=== PATIENT | male | born 1975 | race African-American/Black ===

== ENCOUNTER 2024-02-19 20:47 | Observation (INO) | payer OTHER ==
[2024-02-19 21:11] VITALS: BMI 32.5
[2024-02-19] MEDS: IBUPROFEN 600 MG TABLET (FP) PO ONE (21:21)
[2024-02-19] MEDS ORDERED: morphine SULFATE 4 MG/ML VIAL ONE (21:22)
[2024-02-19] MEDS: morphine CARPU-JECT 4 MG/1 ML DISP.SYRIN IVPUSH ONE (21:39)
[2024-02-19 22:21] LABS: BASO % 0.5 % (0-2.0); EOS % 1.1 % (0-4.5); HEMATOCRIT 39.4 % (35.4-49); HEMOGLOBIN 13.4 GM/dL (11.7-16.9); LYMPH % 32.4 % (8-40); MCH 26.4 pg (25.7-33.7); MEAN CELL VOLUME 77.8 fl (80-96); MEAN PLT VOLUME 9.8 fl (7.5-11.1); MONO % 6.1 % (3.8-10.2); NEUT % 59.9 % (42.8-82.8); PLATELET COUNT 181 10^3/uL (134-434); RBC 5.07 M/mm3 (4.00-5.60); RDW 13.1 % (11.9-15.9); WHITE BLOOD COUNT 6.1 K/mm3 (4.0-10.0)
[2024-02-19 22:27] LABS: INR 1.22 (0.83-1.09); PROTHROMBIN TIME (PATIENT) 13.7 SEC (9.7-13.0)
[2024-02-19 22:29] LABS: ACTIVATED PTT 29.6 SECONDS (25.2-36.5)
[2024-02-19 22:40] LABS: CHLORIDE 113 mmol/L (98-107); SODIUM 141 mmol/L (136-145)
[2024-02-19 22:42] LABS: ALBUMIN 2.9 g/dl (3.4-5.0); BLOOD UREA NITROGEN 8.6 mg/dL (7-18); CALCIUM 7.1 mg/dL (8.5-10.1); CO2 23 mmol/L (21-32); GLUCOSE,RANDOM 87 mg/dL (74-106)
[2024-02-19 22:45] LABS: CREATININE 0.9 mg/dL (0.55-1.3); SGPT/ALT 26 U/L (13-61)
[2024-02-19 22:47] LABS: BILIRUBIN,TOTAL 0.9 mg/dL (0.2-1); SGOT/AST 22 U/L (15-37)
[2024-02-19 22:48] LABS: ALK PHOS 52 U/L (45-117)
[2024-02-19 22:53] LABS: ANION GAP 6 mmol/L (4-13); POTASSIUM 2.6 mmol/L (3.5-5.1)
[2024-02-19] MEDS ORDERED: POTASSIUM CHLORIDE TABS 20 MEQ TABLET.ER (FP) PO ONE (23:16)
[2024-02-19] MEDS ORDERED: KCL 10 MEQ IVPB 20 MEQ/200 ML INFUS.BAG IVPB ONE (23:16)
[2024-02-19 23:38] LABS: MAGNESIUM 1.4 mg/dL (1.8-2.4)
[2024-02-19] MEDS: POTASSIUM CHLORIDE TABS 20 MEQ TABLET.ER (FP) PO ONE (23:39)
[2024-02-19] MEDS: KCL 10 MEQ IVPB 10 MEQ/100 ML INFUS.BAG IVPB SCH (23:39)
[2024-02-20] MEDS ORDERED: MAGNESIUM SULFATE IN WATER 2 GM/50 ML IVPB IVPB ONE (01:56)
[2024-02-20] MEDS: MAGNESIUM SULFATE IN WATER 2 GM/50 ML IVPB IVPB ONE (02:48)
[2024-02-20] MEDS: MAGNESIUM SULF 50% (8.12 MEQ/2 ML-1 GM VIAL) IVPB ONE (02:59)
[2024-02-20] MEDS: KCL 20 MEQ PREMIX BAG 20 MEQ/100 ML INFUS.BAG IVPB SCH (02:59)
[2024-02-20] MEDS: POTASSIUM CHLORIDE TABS 10 MEQ TABLET.ER (FP) PO ONE (03:00)
[2024-02-20] MEDS ORDERED: KCL 10 MEQ IVPB 10 MEQ/100 ML INFUS.BAG IVPB ONE (03:33)
[2024-02-20] MEDS: KCL 10 MEQ IVPB 10 MEQ/100 ML INFUS.BAG IVPB SCH (03:53)
[2024-02-20 04:09] LABS: PH,URINE 8.5 (5.0-8.0); URINE APPEARANCE CLEAR; URINE BILIRUBIN NEGATIVE (NEGATIVE); URINE COLOR YELLOW; URINE GLUCOSE (UA) NEGATIVE (NEGATIVE); URINE KETONE NEGATIVE (NEGATIVE); URINE LEUK ESTERASE NEGATIVE (NEGATIVE); URINE NITRITE NEGATIVE (NEGATIVE); URINE PROTEIN NEGATIVE (NEGATIVE); URINE UROBILINOGEN 0.2 mg/dL (0.2-1.0)
[2024-02-20 04:29] LABS: POTASSIUM 3.9 mmol/L (3.5-5.1)
[2024-02-20 04:32] LABS: MAGNESIUM 2.8 mg/dL (1.8-2.4)
[2024-02-20 04:32] LABS: BLOOD UREA NITROGEN 8.2 mg/dL (7-18)
[2024-02-20 04:35] LABS: CREATININE 0.9 mg/dL (0.55-1.3)
[2024-02-20 04:45] LABS: CALCIUM 8.5 mg/dL (8.5-10.1)
[2024-02-20 06:40] LABS: PHOSPHOROUS 4.1 mg/dL (2.5-4.9)
[2024-02-20] MEDS ORDERED: oxyCODONE HCL 5 MG TABLET ONE (15:55)
[2024-02-20] MEDS: oxyCODONE HCL 5 MG TABLET PO ONE (16:07)
[2024-02-21] MEDS: MELATONIN 5 MG TABLETS PO ONE (00:56)
[2024-02-21 08:02] LABS: BASO % 0.5 % (0-2.0); EOS % 1.8 % (0-4.5); HEMATOCRIT 41.9 % (35.4-49); HEMOGLOBIN 13.8 GM/dL (11.7-16.9); LYMPH % 33.3 % (8-40); MCH 25.8 pg (25.7-33.7); MCHC 32.9 g/dl (32.0-35.9); MEAN CELL VOLUME 78.4 fl (80-96); MEAN PLT VOLUME 10.1 fl (7.5-11.1); NEUT % 56.4 % (42.8-82.8); PLATELET COUNT 204 10^3/uL (134-434); RBC 5.35 M/mm3 (4.00-5.60); RDW 13.1 % (11.9-15.9); WHITE BLOOD COUNT 6.2 K/mm3 (4.0-10.0)
[2024-02-21 08:15] LABS: POTASSIUM 4.1 mmol/L (3.5-5.1)
[2024-02-21 08:20] LABS: CALCIUM 8.6 mg/dL (8.5-10.1)
[2024-02-21 08:21] LABS: MAGNESIUM 2.2 mg/dL (1.8-2.4)
[2024-02-21 08:25] LABS: BILIRUBIN,TOTAL 1.2 mg/dL (0.2-1); TOT PROT 7.9 g/dl (6.4-8.2)
[2024-02-21 08:30] LABS: ALBUMIN 3.8 g/dl (3.4-5.0)
[2024-02-21] MEDS: ENOXAPARIN NA (PORCINE) 40 MG/0.4 ML DISP.SYRIN SQ SCH (10:46)
[2024-02-21] MEDS: traMADol HCL 50 MG TABLET PO PRN (13:44)
[2024-02-23 05:52] VITALS: BP 128/78; PULSE 73; RESP 18; TEMP 97.8
== END 2024-02-23 11:55 | disposition home or self-care (01) ==
LOC: JER 20:47 → JERBED 02-20 01:42 → J7W 02-20 19:35
PROVIDERS: ADMIT Internal Medicine; ATTEND Nurse Practitioner Acute Care
PROC: 3E033GC Introduction of Other Therapeutic Substance into Peripheral Vein, Percutaneous Approach (ICD-10-PCS; principal; 2024-02-20)
PROC: 3E023GC Introduction of Other Therapeutic Substance into Muscle, Percutaneous Approach (ICD-10-PCS; 2024-02-20)
DX: S82.831A Other fracture of upper and lower end of right fibula, initial encounter for closed fracture (principal); W18.39XA Other fall on same level, initial encounter; Y93.89 Activity, other specified; Y92.410 Unspecified street and highway as the place of occurrence of the external cause; Y99.0 Civilian activity done for income or pay; F10.90 Alcohol use, unspecified, uncomplicated; Z29.89 Encounter for other specified prophylactic measures; R73.03 Prediabetes; E87.8 Other disorders of electrolyte and fluid balance, not elsewhere classified
CPT/HCPCS: 36415; 72128-TC; 73590-TC-RT-FY; 73610-TC-RT-FY; 73630-TC-RT-FY; 80048; 80053; 80307; 81003; 83735; 84100; 85025; 85610; 85730; 86850; 86900; 86901; 93005; 93010; 97116-GP; 99285-25; G0378